=== PATIENT | male | born 1970 | race Caucasian/White ===

== ENCOUNTER 2017-01-23 16:32 | Emergency (ER) | payer BC ==
[~2017-01-23 16:32] MED LIST: AMOXICILLIN875 MG PO; AUGMENTIN PO; BENZONATATE PO; CECLOR PULVULE250 MG PO; DM MED; DOXYCYCLINE PO; FLEXERIL10 MG PO; GLUCOTROL PO; HIGH CHOL MED; IMODIUM2 MG PO; INDOCIN SR75 MG PO; LAMISIL PO; LYRICA PO; MEDROL4 MG/DOSE- PO; METFORMIN PO; NAPROSYN500 MG PO; NEURONTIN300 MG PO; NO MEDICATIONS; OXYCODON HCL-AP1 TA2 PO; PERCOCET 10/31 UDTA1 PO; PERCOCET 5-3251 TAB PO; PERCOCET5/325 PO; ROBAXIN 750750 MG PO; ROBAXIN500 MG PO; RONDEC-DM ORAL30 ML PO; SKELAXIN PO; TYLENOL325 M1 PO; ULTRAM PO; VICODIN 5/1 TAB 5/50 PO; ZOFRAN ODT4 MG PO
== END 2017-01-23 16:45 | disposition home or self-care (01) ==
LOC: CED 16:32
DX: H66.91 Otitis media, unspecified, right ear (principal); H81.10 Benign paroxysmal vertigo, unspecified ear; E11.9 Type 2 diabetes mellitus without complications; Z88.5 Allergy status to narcotic agent; Z88.8 Allergy status to other drugs, medicaments and biological substances
CPT/HCPCS: 99282